=== PATIENT | female | born 1985 | race Caucasian/White ===

== ENCOUNTER 2016-06-30 06:48 | Emergency (ER) | payer MEDICAID ==
[2016-06-30] MEDS ORDERED: HYDROmorphone 1 MG/ML SYRINGE IM STA (07:27)
[2016-06-30] MEDS ORDERED: CYCLOBENZAPRINE 10 MG TABLET PO STA (07:28)
[2016-06-30] MEDS ORDERED: CYCLOBENZAPRINE 10 MG TABLET PO ONE (07:31)
[2016-06-30] MEDS ORDERED: HYDROmorphone 1 MG/ML SYRINGE ONE (07:31)
[2016-06-30] MEDS ORDERED: ONDANSETRON ODT 4 MG TABLET TL STA (07:35)
[2016-06-30] MEDS ORDERED: ONDANSETRON ODT 4 MG TABLET ONE (07:35)
[2016-06-30] MEDS ORDERED: DEXAMETHASONE 10 MG/ML VIAL PO STA (08:14)
[2016-06-30] MEDS ORDERED: CHERRY SYRUP 10 ML UDC PO ONE (08:18)
[2016-06-30] MEDS ORDERED: DEXAMETHASONE 10 MG/ML VIAL ONE (08:19)
== END 2016-06-30 08:38 | disposition home or self-care (01) ==
DX: M62.838 Other muscle spasm (principal); R03.0 Elevated blood-pressure reading, without diagnosis of hypertension
CPT/HCPCS: 96372; 99283; 99284; A9270; J1170; Q0162

== ENCOUNTER 2016-07-08 16:25 | Outpatient (CLI) | payer MEDICAID | END 2016-07-08 16:26 | disposition home or self-care (01) | DX: M41.9 Scoliosis, unspecified (principal); M54.2 Cervicalgia; M54.6 Pain in thoracic spine ==

== ENCOUNTER 2017-01-27 11:22 | Outpatient (CLI) | payer MEDICAID | END 2017-01-27 11:23 | disposition home or self-care (01) | LOC: CAM 11:22 | PROVIDERS: ATTEND Physician Assistant Medical | DX: M62.830 Muscle spasm of back (principal) | CPT/HCPCS: 97810; 97811 ==